=== PATIENT | male | born 1930 | race Caucasian/White ===

== ENCOUNTER 2016-12-04 13:46 | Inpatient (IN) | payer MEDICARE, OTHER ==
[~2016-12-04 13:46] MED LIST: ACIDOPHILUS LA1 EAC1 PO; ASPIRIN81 M1 PO; CARVEDILOL12.5 MG PO; CATAPRES0.1 MG; COREG25 M1 PO; CRESTOR20 MG PO; CRESTOR40 MG; DIOVAN80 M PO; HYDRALAZINE HCL25 M1 PO; HYDROCORTISONE CREAM TOP; KLOR-CON M1010 MEQ PO; LASIX40 M1 PO; LEVAQUIN250 M3 PO; MULTIVITAMIN1 CAP; MULTIVITAMIN1 TAB PO; NIASPAN1000 MG PO; NORCO 5/325 TAB1 TAB PO; NORVASC10 MG PO; ROCALTROL0.25 MC1 PO; TYLENOL325 M1 PO; VITAMIN D-50000 IU/C PO; VITAMIN D2 PO; ZETIA10 MG; [UNRECOGNIZED DRUG - CODE] PO
[2016-12-04 14:28] LABS: BASO % 0.1 % (0-2); EOS % 3.9 % (0-7); EOSINOPHIL ABSOLUTE COUNT 0.3 tho/cmm (0.0-0.7); HCT-HEMATOCRIT 30.9 % (36.0-53.5); HGB-HEMOGLOBIN 10.1 gm/dl (13.5-17.0); IMMATURE GRANULOCYTES ABSOLUTE 0.01 tho/cmm (0-0.03); IMMATURE GRANULOCYTES PERCENT 0.1 % (0-0.3); LYMPH % 23.5 % (20-45); LYMPH ABSOLUTE COUNT 1.7 tho/cmm (0.8-4.5); MCH (MEAN CORPUSCULAR HGB) 30.6 pg (28.0-32.0); MCHC MEAN CORPUSCULAR HGB CONC 32.7 % (32.0-36.0); MCV (MEAN CELL VOLUME) 93.6 fl (82.0-96.0); MONOCYTE ABSOLUTE COUNT 0.8 tho/cmm (0.0-1.2); NEUTROPHIL ABSOLUTE COUNT 4.4 tho/cmm (1.6-8.0); NEUTROPHIL-AUTOMATED 4.4 tho/cmm (1.6-8.0); NEUTROPHILS % 61.4 % (40-80); PLATELET COUNT 232 tho/cmm (150-450); RED CELL DISTRIBUTION WIDTH 13.7 % (12.4-16.4); WHITE BLOOD COUNT 7.1 tho/cmm (4.0-10.0)
[2016-12-04 14:32] LABS: PROTHROMBIN TIME 11.5 SECONDS (9.0-13.6)
[2016-12-04 14:47] LABS: ALBUMIN 3.1 g/dl (3.5-5.0); ALKALINE PHOSPHATASE 119 U/L (33-138); ALT/SGPT 28 U/L (12-78); ANION GAP 14 mmol/L (0-20); AST/SGOT 29 U/L (10-40); BILIRUBIN,TOTAL 0.6 mg/dl (0.0-1.5); BLOOD UREA NITROGEN 57 mg/dl (6-24); CALCIUM 8.8 mg/dl (8.5-10.5); CARBON DIOXIDE-VENOUS 19 mmol/L (22-32); CHLORIDE 115 mmol/l (96-110); CREATININE 2.96 mg/dl (0.60-1.30); GLUCOSE 108 mg/dL (70-110); POTASSIUM 5.2 mmol/L (3.7-5.1); SODIUM 143 mmol/L (135-145); eGFR VALUE FOR BLACK 21 mL/Min
[2016-12-05 03:22] LABS: URINE PRT/CR RATIO 1.48 Ratio (0.0-0.20); URINE TOTAL PROTEIN-RANDOM 46.1 mg/dl (<11.8)
[2016-12-05 05:43] LABS: ANION GAP 14 mmol/L (0-20); BLOOD UREA NITROGEN 56 mg/dl (6-24); CALCIUM 9.2 mg/dl (8.5-10.5); CARBON DIOXIDE-VENOUS 21 mmol/L (22-32); CHLORIDE 115 mmol/l (96-110); CREATININE 2.99 mg/dl (0.60-1.30); FERRITIN 145 ng/ml (22-388); GLUCOSE 103 mg/dL (70-110); MAGNESIUM 2.4 mg/dl (1.3-2.6); PHOSPHOROUS 4.1 mg/dl (2.5-4.9); POTASSIUM 5.1 mmol/L (3.7-5.1); SODIUM 145 mmol/L (135-145); eGFR VALUE FOR BLACK 21 mL/Min
[2016-12-05 05:45] LABS: IRON 47 ug/dl (49-181); IRON BINDING CAPACITY 230 ug/dl (250-450)
[2016-12-06 05:29] LABS: BASO % 0.3 % (0-2); EOS % 3.4 % (0-7); EOSINOPHIL ABSOLUTE COUNT 0.2 tho/cmm (0.0-0.7); HCT-HEMATOCRIT 29.9 % (36.0-53.5); IMMATURE GRANULOCYTES ABSOLUTE 0.01 tho/cmm (0-0.03); IMMATURE GRANULOCYTES PERCENT 0.1 % (0-0.3); LYMPH % 25.3 % (20-45); LYMPH ABSOLUTE COUNT 1.7 tho/cmm (0.8-4.5); MCH (MEAN CORPUSCULAR HGB) 31.1 pg (28.0-32.0); MCHC MEAN CORPUSCULAR HGB CONC 33.4 % (32.0-36.0); MCV (MEAN CELL VOLUME) 92.9 fl (82.0-96.0); MEAN PLATELET VOLUME 9.9 cmc (9.4-12.4); MONO % 12.6 % (0-12); MONOCYTE ABSOLUTE COUNT 0.9 tho/cmm (0.0-1.2); NEUTROPHILS % 58.3 % (40-80); PLATELET COUNT 228 tho/cmm (150-450); RED BLOOD COUNT 3.22 mil/cmm (4.40-5.70); RED CELL DISTRIBUTION WIDTH 13.7 % (12.4-16.4); WHITE BLOOD COUNT 6.8 tho/cmm (4.0-10.0)
[2016-12-06 05:48] LABS: ALBUMIN 3.2 g/dl (3.5-5.0); ANION GAP 15 mmol/L (0-20); BLOOD UREA NITROGEN 57 mg/dl (6-24); CALCIUM 9.1 mg/dl (8.5-10.5); CARBON DIOXIDE-VENOUS 23 mmol/L (22-32); CHLORIDE 112 mmol/l (96-110); GLUCOSE 106 mg/dL (70-110); POTASSIUM 4.7 mmol/L (3.7-5.1); SODIUM 145 mmol/L (135-145)
[2016-12-06 05:49] LABS: CREATININE 2.99 mg/dl (0.60-1.30); PHOSPHOROUS 4.4 mg/dl (2.5-4.9); eGFR VALUE FOR BLACK 21 mL/Min
[2016-12-07 05:36] LABS: BASO % 0.3 % (0-2); EOS % 4.9 % (0-7); EOSINOPHIL ABSOLUTE COUNT 0.3 tho/cmm (0.0-0.7); HCT-HEMATOCRIT 29.8 % (36.0-53.5); HGB-HEMOGLOBIN 9.8 gm/dl (13.5-17.0); IMMATURE GRANULOCYTES ABSOLUTE 0.02 tho/cmm (0-0.03); IMMATURE GRANULOCYTES PERCENT 0.3 % (0-0.3); LYMPH % 24.3 % (20-45); LYMPH ABSOLUTE COUNT 1.6 tho/cmm (0.8-4.5); MCH (MEAN CORPUSCULAR HGB) 30.5 pg (28.0-32.0); MCHC MEAN CORPUSCULAR HGB CONC 32.9 % (32.0-36.0); MCV (MEAN CELL VOLUME) 92.8 fl (82.0-96.0); MONO % 11.8 % (0-12); MONOCYTE ABSOLUTE COUNT 0.8 tho/cmm (0.0-1.2); NEUTROPHIL ABSOLUTE COUNT 3.9 tho/cmm (1.6-8.0); NEUTROPHIL-AUTOMATED 3.9 tho/cmm (1.6-8.0); NEUTROPHILS % 58.4 % (40-80); PLATELET COUNT 249 tho/cmm (150-450); RED BLOOD COUNT 3.21 mil/cmm (4.40-5.70); RED CELL DISTRIBUTION WIDTH 13.6 % (12.4-16.4); WHITE BLOOD COUNT 6.7 tho/cmm (4.0-10.0)
[2016-12-07 05:53] LABS: ALBUMIN 3.1 g/dl (3.5-5.0); ANION GAP 14 mmol/L (0-20); BLOOD UREA NITROGEN 64 mg/dl (6-24); CARBON DIOXIDE-VENOUS 24 mmol/L (22-32); CHLORIDE 110 mmol/l (96-110); CREATININE 3.04 mg/dl (0.60-1.30); GLUCOSE 105 mg/dL (70-110); PHOSPHOROUS 4.5 mg/dl (2.5-4.9); POTASSIUM 4.2 mmol/L (3.7-5.1); SODIUM 144 mmol/L (135-145); eGFR VALUE FOR BLACK 21 mL/Min
[2016-12-08 00:24] LABS: IRON 57 ug/dl (49-181); IRON BINDING CAPACITY 221 ug/dl (250-450)
[2016-12-08 00:46] LABS: TSH-THYROID STIMULATING HORM. 2.46 uIU/ml (0.40-3.80)
[2016-12-08 05:34] LABS: HCT-HEMATOCRIT 29.6 % (36.0-53.5); HGB-HEMOGLOBIN 9.8 gm/dl (13.5-17.0); MCV (MEAN CELL VOLUME) 93.1 fl (82.0-96.0); PLATELET COUNT 243 tho/cmm (150-450); RED CELL DISTRIBUTION WIDTH 13.5 % (12.4-16.4)
[2016-12-08 05:50] LABS: ALBUMIN 3.1 g/dl (3.5-5.0); ANION GAP 14 mmol/L (0-20); BLOOD UREA NITROGEN 63 mg/dl (6-24); CALCIUM 8.8 mg/dl (8.5-10.5); CARBON DIOXIDE-VENOUS 26 mmol/L (22-32); CHLORIDE 108 mmol/l (96-110); CREATININE 3.04 mg/dl (0.60-1.30); GLUCOSE 101 mg/dL (70-110); PHOSPHOROUS 4.5 mg/dl (2.5-4.9); SODIUM 144 mmol/L (135-145); eGFR VALUE FOR BLACK 21 mL/Min
[2016-12-09 06:03] LABS: HCT-HEMATOCRIT 30.6 % (36.0-53.5); HGB-HEMOGLOBIN 9.9 gm/dl (13.5-17.0); RED CELL DISTRIBUTION WIDTH 13.4 % (12.4-16.4)
[2016-12-09 06:21] LABS: ALBUMIN 3.1 g/dl (3.5-5.0); ANION GAP 14 mmol/L (0-20); BLOOD UREA NITROGEN 62 mg/dl (6-24); CALCIUM 8.9 mg/dl (8.5-10.5); CARBON DIOXIDE-VENOUS 27 mmol/L (22-32); CHLORIDE 107 mmol/l (96-110); CREATININE 3.03 mg/dl (0.60-1.30); GLUCOSE 104 mg/dL (70-110); POTASSIUM 3.7 mmol/L (3.7-5.1); SODIUM 144 mmol/L (135-145); eGFR VALUE FOR BLACK 21 mL/Min
[2016-12-09] MEDS ORDERED: LASIX40 M1 PO (14:13)
== END 2016-12-09 14:40 | DRG 292 ==
LOC: EDMED 13:46 → EMR2 15:58 → CAR1 18:30 → PCUA 12-05 16:13
PROVIDERS: Emergency Medicine; Internal Medicine; Internal Medicine Nephrology; ADMIT Specialist
PROC: 02HV33Z Insertion of Infusion Device into Superior Vena Cava, Percutaneous Approach (ICD-10-PCS; principal; 2016-12-06)
DX: I13.0 Hypertensive heart and chronic kidney disease with heart failure and stage 1 through stage 4 chronic kidney disease, or unspecified chronic kidney disease (principal); N18.4 Chronic kidney disease, stage 4 (severe); E87.5 Hyperkalemia; D63.1 Anemia in chronic kidney disease; N25.81 Secondary hyperparathyroidism of renal origin; I50.9 Heart failure, unspecified; E78.00 Pure hypercholesterolemia, unspecified; N40.0 Benign prostatic hyperplasia without lower urinary tract symptoms; E66.9 Obesity, unspecified; Z68.39 Body mass index [BMI] 39.0-39.9, adult; Z87.891 Personal history of nicotine dependence; Z95.0 Presence of cardiac pacemaker; Z79.02 Long term (current) use of antithrombotics/antiplatelets; Z79.82 Long term (current) use of aspirin
CPT/HCPCS: C1751; G0378; J0885; J1650; J1940